=== PATIENT | female | born 1990 | race Caucasian/White ===

== ENCOUNTER 2016-10-18 15:58 | Emergency (ER) | payer OTHER ==
[2016-10-18] MEDS ORDERED: ONDANSETRON DISINTEGRATING 4 MG TAB ONE (16:08)
--- NOTE | 2016-10-18 16:37 | EDPHY ---
H & P Time Seen by Provider: 10/18/16 16:37 HPI/ROS: Chief complaint. Disorientation HPI. 25-year-old female presents emergency department with feeling somewhat disoriented. She has nausea and vomiting. Yesterday morning she awoke with sore throat and congestion. Some coughing. She did not sleep well last night secondary to cough. This morning she was volunteering at a festival and because she was feeling bad she took Sudafed and cough syrup as well as Prozac on an empty stomach. She then stood in the sun for about 6 hours and felt like she could pass out. She then began to develop nausea and vomiting this afternoon and can't keep fluids down. No chest pain, shortness of breath, abdominal pain. ROS Constitutional. Weakness Eyes. no problems with vision ENT. no sore throat, no nasal drainage Cardiovascular. no chest pain Respiratory. no shortness of breath, no cough Abdominal. Nausea and vomiting . no problems urinating MS. no calf pain/swelling, no neck/back pain, no joint pain Skin. no rash Lymph. no swollen glands Neuro. Dizziness Past Medical/Surgical History: Anxiety Social History: Single nonsmoker no alcohol Smoking Status: Never smoked Physical Exam: General Appearance: Alert pleasant well-developed female mild distress vital signs are stable Eyes: Pupils equal and round no pallor or injection. ENT, Mouth: Mucous membranes are dry. Pharynx without injection. Respiratory: There are no retractions, lungs are clear to auscultation. Cardiovascular: Regular rate and rhythm. Gastrointestinal: Abdomen is soft and nontender, no masses, bowel sounds normal. Neurological: Awake and alert, sensory and motor exams grossly normal. Skin: Warm and dry, no rashes. Musculoskeletal: Neck is supple nontender. Extremities symmetrical, full range of motion. Psychiatric: Patient is oriented X 3, there is no agitation. Constitutional: Initial Vital Signs Temperature (C) 36.8 C 10/18/16 16:02 Heart Rate 89 10/18/16 16:02 Respiratory Rate 14 10/18/16 16:02 Blood Pressure 109/72 10/18/16 16:02 O2 Sat (%) 98 10/18/16 16:02 O2 Delivery Mode Room Air Allergies/Adverse Reactions: omeprazole Allergy (Verified 10/18/16 16:05) Medical Decision Making Procedures: IV normal saline. Zofran ED Course/Re-evaluation: Re-evaluation 6:15 p.m.-- Feeling better Re-evaluation 7:40 p.m.. Patient is stable and improved. She is taking oral ice chips and sips of water without nausea or vomiting. She has been up to the bathroom to urinate. Patient and I discussed laboratory evaluation, treatment plan including criteria for return importance of follow-up and further evaluation. She expresses understanding and agreement Differential Diagnosis: I think this is likely heat exhaustion. The patient was already somewhat ill and did not sleep well last night and then took medication on top of empty stomach before standing out in the sun all day. She required 3 L of saline prior to urination. - Data Points Laboratory Results: Laboratory Results 10/18/16 16:48 10/18/16 16:48 10/18/16 10/18/16 10/18/16 16:48 16:48 16:48 WBC 8.80 10^3/uL 10^3/uL (3.80-9.50) RBC 4.49 10^6/uL 10^6/uL (4.18-5.33) Hgb 14.6 g/dL g/dL (12.6-16.3) Hct 41.3 % % (38.0-47.0) MCV 92.0 fL fL (81.5-99.8) MCH 32.5 pg pg (27.9-34.1) MCHC 35.4 g/dL g/dL (32.4-36.7) RDW 10.9 % L % (11.5-15.2) Plt Count 214 10^3/uL 10^3/uL (150-400) MPV 8.8 fL fL (8.7-11.7) Neut % (Auto) 81.8 % H % (39.3-74.2) Lymph % (Auto) 8.2 % L % (15.0-45.0) Treasure % (Auto) 9.0 % % (4.5-13.0) Eos % (Auto) 0.0 % L % (0.6-7.6) Baso % (Auto) 0.5 % % (0.3-1.7) Nucleat RBC Rel Count 0.0 % % (0.0-0.2) Absolute Neuts (auto) 7.21 10^3/uL H 10^3/uL (1.70-6.50) Absolute Lymphs (auto) 0.72 10^3/uL L 10^3/uL (1.00-3.00) Absolute Monos (auto) 0.79 10^3/uL 10^3/uL (0.30-0.80) Absolute Eos (auto) 0.00 10^3/uL L 10^3/uL (0.03-0.40) Absolute Basos (auto) 0.04 10^3/uL 10^3/uL (0.02-0.10) Absolute Nucleated RBC 0.00 10^3/uL 10^3/uL (0-0.01) Immature Gran % 0.5 % % (0.0-1.1) Immature Gran # 0.04 10^3/uL 10^3/uL (0.00-0.10) Sodium 138 mEq/L mEq/L (134-144) Potassium 3.7 mEq/L mEq/L (3.5-5.2) Chloride 99 mEq/L mEq/L (97-110) Carbon Dioxide 25 mEq/l mEq/l (22-31) Anion Gap 14 mEq/L mEq/L (8-16) BUN 6 mg/dL L mg/dL (7-23) Creatinine 0.8 mg/dL mg/dL (0.6-1.0) Estimated GFR > 60 Glucose 94 mg/dL mg/dL (70-100) Calcium 9.6 mg/dL mg/dL (8.5-10.4) Beta HCG, Qual NEGATIVE Medications Given: Discontinued Medications Sodium Chloride (Ns) 1,000 mls @ 0 mls/hr IV EDNOW ONE; Wide Open PRN Reason: Protocol Stop: 10/18/16 17:07 Last Admin: 10/18/16 17:18 Dose: 1,000 mls Sodium Chloride (Ns) 1,000 mls @ 0 mls/hr IV EDNOW ONE; Wide Open PRN Reason: Protocol Stop: 10/18/16 17:07 Last Admin: 10/18/16 17:19 Dose: 1,000 mls Sodium Chloride (Ns) 1,000 mls @ 0 mls/hr IV ONCE ONE PRN Reason: Wide Open Stop: 10/18/16 18:17 Last Admin: 10/18/16 18:24 Dose: 1,000 mls Ondansetron HCl (Zofran) 4 mg IVP EDNOW ONE Stop: 10/18/16 17:07 Last Admin: 10/18/16 17:19 Dose: 4 mg Departure - Departure Disposition: Home, Routine, Self-Care Clinical Impression: Heat exhaustion Qualifiers: Encounter type: initial encounter Qualified Code(s): T67.5XXA - Heat exhaustion , unspecified, initial encounter Condition: Good Instructions: Heat Exhaustion (ED) Additional Instructions: Frequent, small sips fluids well nauseated. Gradual diet advancement. Return for worsening symptoms. Recheck in 1-2 days for continuing symptoms Referrals: NONE *PRIMARY CARE P,. [Primary Care Provider] - As per Instructions
[2016-10-18] MEDS ORDERED: NS 1,000 ML IV ONE ×3 (17:06→18:16)
[2016-10-18] MEDS ORDERED: ONDANSETRON 4 MG/2 ML VIAL IVP ONE (17:06)
[2016-10-18 17:11] LABS: % IMMATURE GRANULYOCYTES 0.5 % (0.0-1.1); ABSOLUTE IMMATURE GRANULOCYTES 0.04 10^3/uL (0.00-0.10); ADD DIFF? NO; ADD MORPH? NO; ADD SCAN? NO; ATYPICAL LYMPHOCYTE FLAG 10 (0-99); FRAGMENT RBC FLAG 0 (0-99); HEMATOCRIT 41.3 % (38.0-47.0); HEMOGLOBIN 14.6 g/dL (12.6-16.3); LEFT SHIFT FLG 0 (0-99); LIPEMIA HEMOLYSIS FLAG 90 (0-99); MEAN CELL HEMOGLOBIN 32.5 pg (27.9-34.1); MEAN CELL HEMOGLOBIN CONCENTR. 35.4 g/dL (32.4-36.7); MEAN PLATELET VOLUME 8.8 fL (8.7-11.7); PLATELET CLUMPS FLAG 20 (0-99); PLATELET COUNT 214 10^3/uL (150-400); RED BLOOD CELL COUNT 4.49 10^6/uL (4.18-5.33); RED CELL DISTRIBUTION WIDTH 10.9 % (11.5-15.2)
[2016-10-18 17:26] LABS: ANION GAP 14 mEq/L (8-16); CALCIUM 9.6 mg/dL (8.5-10.4); CARBON DIOXIDE 25 mEq/l (22-31); CHLORIDE 99 mEq/L (97-110); CREATININE 0.8 mg/dL (0.6-1.0); GLOMERULAR FILTRATION RATE > 60; GLUCOSE 94 mg/dL (70-100); POTASSIUM 3.7 mEq/L (3.5-5.2); SODIUM 138 mEq/L (134-144)
[2016-10-18 18:27] VITALS: O2SAT 97
[2016-10-18 19:58] VITALS: BP 119/73; PULSE 85; RESP 18; TEMP 98.2
== END 2016-10-18 19:59 | disposition home or self-care (01) ==
DX: T67.5XXA Heat exhaustion, unspecified, initial encounter (principal); E86.9 Volume depletion, unspecified
CPT/HCPCS: 96374; J2405